=== PATIENT | female | born 1995 | race Hispanic/Latino ===

== ENCOUNTER 2022-01-08 14:58 | Day surgery (SDC) | payer OTHER ==
[2022-01-08 15:33] VITALS: BMI 27.3
[2022-01-08] MEDS ORDERED: hydrALAZINE 20 MG/ML VIAL SLOW IVP PRN (15:42)
== END 2022-01-08 17:30 | disposition home health service (06) ==
LOC: CSHLD/OP 14:58
PROVIDERS: ATTEND Family Medicine
DX: O26.853 Spotting complicating pregnancy, third trimester (principal); O23.593 Infection of other part of genital tract in pregnancy, third trimester; B96.89 Other specified bacterial agents as the cause of diseases classified elsewhere; Z3A.28 28 weeks gestation of pregnancy; Z88.0 Allergy status to penicillin
CPT/HCPCS: 87480; 87510; 87660; 99284

== ENCOUNTER 2022-03-23 22:35 | Day surgery (SDC) | payer BC, OTHER ==
[2022-03-23 23:20] VITALS: BMI 27.9
[2022-03-24] MEDS ORDERED: hydrALAZINE 20 MG/ML VIAL SLOW IVP PRN (01:20)
== END 2022-03-24 01:55 | disposition home or self-care (01) ==
LOC: CSHLD/OP 22:35
PROVIDERS: ATTEND Family Medicine
DX: O26.853 Spotting complicating pregnancy, third trimester (principal); Z3A.38 38 weeks gestation of pregnancy
CPT/HCPCS: 99283

== ENCOUNTER 2022-03-31 06:43 | Inpatient (IN) | payer BC, OTHER ==
[2022-03-31 07:17] VITALS: BMI 27.9
[2022-03-31] MEDS ORDERED: Acetaminophen 500 MG TAB PO PRN (07:37)
[2022-03-31] MEDS ORDERED: Lidocaine 1% (PF) 30 ML VIAL SC PRN (07:37)
[2022-03-31] MEDS ORDERED: hydrALAZINE 20 MG/ML VIAL SLOW IVP PRN ×3 (07:37→23:08)
[2022-03-31] MEDS ORDERED: Promethazine HCl 25 MG/ML VIAL IM PRN ×4 (07:37→18:14)
[2022-03-31] MEDS ORDERED: HYDROcodone/Acetaminophen 5/325 mg Tablet PO PRN (07:37)
[2022-03-31] MEDS ORDERED: Diphenoxylate HCl/Atropine Tablet PO PRN (07:37)
[2022-03-31] MEDS ORDERED: Ibuprofen 800 MG TAB PO PRN (07:37)
[2022-03-31] MEDS ORDERED: Carboprost 250 MCG/ML AMP IM PRN (07:37)
[2022-03-31] MEDS ORDERED: Butorphanol Tartrate 1 MG/ML VIAL SLOW IVP PRN (07:37)
[2022-03-31] MEDS ORDERED: Misoprostol 200 MCG TAB PR PRN (07:37)
[2022-03-31] MEDS ORDERED: Methylergonovine 0.2 MG/ML VIAL IM PRN (07:37)
[2022-03-31] MEDS ORDERED: Ondansetron PF 4 MG/2 ML Vial IVP PRN ×4 (07:37→18:14)
[2022-03-31] MEDS ORDERED: NS w/ Oxytocin 30 units 500 ML IV SCH ×3 (07:45→18:14)
[2022-03-31] MEDS ORDERED: Bupivacaine PF 0.5% 30 ML VIAL ONE (08:00)
[2022-03-31] MEDS ORDERED: Lidocaine 2% MPF 10 ML AMP (For Epidural Use) ONE (08:00)
[2022-03-31] MEDS: Lactated Ringer's 1,000 ML IV SCH ×2 (08:01→14:43)
[2022-03-31 09:23] LABS: Mean Corpuscular HGB CONC 34.6 g/dL (32.0-36.0); Mean Corpuscular Hemoglobin 29.1 pg (27.0-33.0); Mean Corpuscular Volume 84.1 fl (81.6-98.3); Mean Platelet Volume 11.9 fl (7.4-10.4); Platelet Count 120 10x3/uL (150-450); RBC Distribution Width 15.2 % (11.5-14.5); Red Blood Cell (RBC) Count 4.47 10x6/uL (3.90-5.03); White Blood Cell (WBC) Count 5.8 10x3/uL (3.5-10.5)
[2022-03-31 09:51] LABS: Hep B Surf Ag Non-Reactive S/CO (NonReactive); Syphilis Antibody Nonreactive (Nonreactive); Syphilis Antibody Index 0.04 S/CO (<1.00 Non-Reactive)
[2022-03-31 10:17] LABS: HBSAg Index 0.15 S/CO (0-0.99)
[2022-03-31] MEDS ORDERED: Fentanyl 2 mcg/Bup 0.1% Cadd 100 ML ONE (14:43)
[2022-03-31] MEDS ORDERED: Naloxone HCl 0.4 mg/ml Vial IVP PRN ×4 (15:35→17:24)
[2022-03-31] MEDS ORDERED: Lactated Ringer's 500 ML IV PRN (15:35)
[2022-03-31] MEDS ORDERED: ePHEDrine Sulfate 50 MG/10 ML VIAL SLOW IVP PRN (15:35)
[2022-03-31] MEDS ORDERED: diphenhydrAMINE 50 MG/ML VIAL IVP PRN ×2 (15:35→17:24)
[2022-03-31] MEDS ORDERED: Acetaminophen 325 MG TAB PO PRN (15:35)
[2022-03-31] MEDS ORDERED: Moisturizing Cream (Eucerin) 113 GM JAR TOP PRN ×2 (15:35→17:24)
[2022-03-31] MEDS ORDERED: Fentanyl 2 mcg/Bupivacaine 0.1% Cassette 100 ML EPIDURAL SCH (15:45)
[2022-03-31] MEDS ORDERED: Communication Order-Pharmacy FS SCH ×2 (15:45→17:30)
[2022-03-31] MEDS ORDERED: CEFAZOLIN 2 GM VIAL ONE (16:32)
[2022-03-31] MEDS ORDERED: Azithromycin 500 MG VIAL ONE (16:32)
[2022-03-31] MEDS ORDERED: Famotidine/PF 20 mg/2ml Vial ONE (16:33)
[2022-03-31] MEDS ORDERED: Clindamycin/D5W 900 mg/50 ml Premix Bag ONE (16:42)
[2022-03-31] MEDS ORDERED: Morphine PF 10 MG/10 ML VIAL ONE (16:43)
[2022-03-31] MEDS ORDERED: Ondansetron PF 4 MG/2 ML Vial ONE (16:44)
[2022-03-31] MEDS ORDERED: Oxytocin 10 UNITS/ML VIAL ONE (16:44)
[2022-03-31] MEDS ORDERED: PHENYLEPHRINE-NS 100 MCG/ML 10 ML SYRINGE ONE (16:44)
[2022-03-31] MEDS ORDERED: Dexamethasone 4 mg/ml Vial ONE (16:44)
[2022-03-31] MEDS ORDERED: Gentamicin Sulfate 80 MG in Premix Bag 1 BAG IVPB SCH (16:45)
[2022-03-31] MEDS ORDERED: Methylergonovine 0.2 MG/ML VIAL ONE (17:01)
[2022-03-31] MEDS ORDERED: Meperidine HCl/PF 25 MG/ML VIAL SLOW IVP PRN (17:24)
[2022-03-31] MEDS ORDERED: Naloxone HCl 0.4 mg/ml Vial IV PRN (17:24)
[2022-03-31] MEDS ORDERED: Ketorolac Tromethamine 30 MG/ML VIAL IVP PRN (17:24)
[2022-03-31] MEDS ORDERED: Ondansetron HCl/PF 4 MG/2 ML Vial IVP PRN (17:24)
[2022-03-31] MEDS ORDERED: Promethazine HCl 25 MG SUPP PR PRN (17:24)
[2022-03-31] MEDS ORDERED: Fentanyl 100 MCG/2 ML VIAL SLOW IVP PRN (17:24)
[2022-03-31] MEDS ORDERED: L&D-Morphine 4 MG/ML VIAL SLOW IVP PRN (17:24)
[2022-03-31] MEDS ORDERED: Ketorolac Tromethamine 30 MG/ML VIAL IVP SCH (17:30)
[2022-03-31] MEDS ORDERED: Simethicone Chewable 80 MG TAB PO PRN (18:14)
[2022-03-31] MEDS ORDERED: diphenhydrAMINE 25 MG CAP PO PRN (18:14)
[2022-03-31] MEDS ORDERED: Bisacodyl 10 MG SUPP PR PRN (18:14)
[2022-03-31] MEDS ORDERED: Lanolin Ointment 7 GM TUBE TOP PRN (18:14)
[2022-03-31] MEDS ORDERED: Boostrix 0.5 ML (Tdap) VIAL IM ONE (18:14)
[2022-03-31] MEDS ORDERED: Lorazepam 2 MG/ML VIAL SLOW IVP PRN (20:12)
[2022-03-31] MEDS ORDERED: Calcium Gluc 4.6 MEQ/10 ML (100 MG/ML) SLOW IVP PRN (20:12)
[2022-03-31] MEDS ORDERED: Magnesium Sulfate 20 gm/500 ml 20 GM/500 ML BAG ONE (20:16)
[2022-03-31] MEDS ORDERED: hydrALAZINE 20 MG/ML VIAL ONE (20:16)
[2022-03-31] MEDS ORDERED: Ketorolac Tromethamine 30 MG/ML VIAL ONE (21:35)
[2022-03-31] MEDS: Ketorolac Tromethamine 30 MG/ML VIAL IVP SCH (21:35)
[2022-03-31] MEDS ORDERED: cloNIDine 0.1 MG TAB PO PRN (23:09)
[2022-04-01] MEDS: Magnesium Sulfate 20 gm/500 ml 20 GM/500 ML BAG IVPB SCH ×2 (04:41→14:30)
[2022-04-01 04:57] LABS: Hemoglobin 12.5 g/dL (12.0-15.5); Mean Corpuscular HGB CONC 34.5 g/dL (32.0-36.0); Mean Corpuscular Hemoglobin 28.9 pg (27.0-33.0); Mean Corpuscular Volume 83.8 fl (81.6-98.3); Mean Platelet Volume 11.9 fl (7.4-10.4); Platelet Count 117 10x3/uL (150-450); RBC Distribution Width 15.3 % (11.5-14.5); Red Blood Cell (RBC) Count 4.32 10x6/uL (3.90-5.03); White Blood Cell (WBC) Count 10.6 10x3/uL (3.5-10.5)
[2022-04-01] MEDS ORDERED: HYDROcodone/Acetaminophen 5/325 mg Tablet PO PRN ×2 (06:00)
[2022-04-01] MEDS: Ketorolac Tromethamine 30 MG/ML VIAL IVP SCH ×2 (09:11→19:04)
[2022-04-01] MEDS: Docusate 100 MG CAP PO SCH ×3 (09:12→21:10)
[2022-04-01] MEDS: Prenatal Vitamin 1 TAB PO SCH (09:12)
[2022-04-01] MEDS: Ferrous Sulfate 325 MG TAB PO SCH ×3 (09:13→21:00)
[2022-04-01] MEDS: NIFEdipine XL 30 MG TAB PO SCH (09:14)
[2022-04-01] MEDS: Ibuprofen 800 MG TAB PO SCH (21:10)
[2022-04-02] MEDS: Ibuprofen 800 MG TAB PO SCH ×3 (05:10→21:45)
[2022-04-02] MEDS: Ketorolac Tromethamine 30 MG/ML VIAL IVP SCH (07:51)
[2022-04-02] MEDS: Prenatal Vitamin 1 TAB PO SCH (08:13)
[2022-04-02] MEDS: Docusate 100 MG CAP PO SCH ×2 (08:13→21:45)
[2022-04-02] MEDS: NIFEdipine XL 30 MG TAB PO SCH (08:13)
[2022-04-02] MEDS: Ferrous Sulfate 325 MG TAB PO SCH ×2 (08:13→21:45)
[2022-04-03] MEDS: Ibuprofen 800 MG TAB PO SCH (05:10)
[2022-04-03] MEDS: Docusate 100 MG CAP PO SCH (08:35)
[2022-04-03] MEDS: NIFEdipine XL 30 MG TAB PO SCH (08:35)
[2022-04-03] MEDS: Prenatal Vitamin 1 TAB PO SCH (08:35)
[2022-04-03 08:50] VITALS: TEMP 98.9
[2022-04-03 12:04] VITALS: BP 134/83
== END 2022-04-03 12:10 | disposition home or self-care (01) | DRG 788 ==
LOC: CSHLD/OP 06:43 → CSHLD 09:12 → CSHANTE 04-01 19:00
PROVIDERS: ADMIT Family Medicine; ATTEND Family Medicine
PROC: 10D00Z1 Extraction of Products of Conception, Low, Open Approach (ICD-10-PCS; principal; 2022-03-31)
PROC: 10907ZC Drainage of Amniotic Fluid, Therapeutic from Products of Conception, Via Natural or Artificial Opening (ICD-10-PCS; 2022-03-31)
PROC: 10H07YZ Insertion of Other Device into Products of Conception, Via Natural or Artificial Opening (ICD-10-PCS; 2022-03-31)
DX: O76 Abnormality in fetal heart rate and rhythm complicating labor and delivery (principal); Z88.0 Allergy status to penicillin; Z37.0 Single live birth; Z3A.39 39 weeks gestation of pregnancy; O62.2 Other uterine inertia; O32.4XX0 Maternal care for high head at term, not applicable or unspecified; O14.15 Severe pre-eclampsia, complicating the puerperium
CPT/HCPCS: 36415; 51702; 85027; 86780; 86850; 86900; 86901; 87340; 99285; J0360; J0595; J1100; J1885; J2210; J2274; J2405; J2550; J2590; J3475; J7120; S0020; S0028

== ENCOUNTER 2023-03-19 09:46 | Outpatient (CLI) | payer BC, OTHER | END 2023-03-19 09:47 | disposition home or self-care (01) | LOC: CSHULT 09:46 | PROVIDERS: ATTEND Nurse Practitioner Women's Health | DX: Z34.82 Encounter for supervision of other normal pregnancy, second trimester (principal); Z3A.20 20 weeks gestation of pregnancy | CPT/HCPCS: 76805 ==

== ENCOUNTER 2023-07-23 11:02 | Inpatient (IN) | payer BC, OTHER ==
[2023-07-23 11:28] VITALS: BMI 29.8
[2023-07-23] MEDS ORDERED: Ondansetron PF 4 MG/2 ML Vial IVP PRN ×4 (12:21→16:11)
[2023-07-23] MEDS ORDERED: Diphenoxylate HCl/Atropine Tablet PO PRN (12:21)
[2023-07-23] MEDS ORDERED: Methylergonovine 0.2 MG/ML VIAL IM PRN (12:21)
[2023-07-23] MEDS ORDERED: Misoprostol 200 MCG TAB PR PRN (12:21)
[2023-07-23] MEDS ORDERED: fentaNYL 50 mcg/mL 1 mL Vial SLOW IVP PRN ×2 (12:21→13:47)
[2023-07-23] MEDS ORDERED: Carboprost 250 MCG/ML AMP IM PRN (12:21)
[2023-07-23] MEDS ORDERED: Tranexamic Acid 1,000 MG/10 ML VIAL IVP PRN (12:21)
[2023-07-23] MEDS ORDERED: Promethazine HCl 25 MG/ML VIAL IM PRN ×3 (12:21→16:11)
[2023-07-23] MEDS ORDERED: Acetaminophen 500 MG TAB PO PRN (12:21)
[2023-07-23] MEDS ORDERED: Bicitra 30 ML UDCUP PO PRN (12:21)
[2023-07-23] MEDS ORDERED: hydrALAZINE 20 MG/ML VIAL SLOW IVP PRN ×2 (12:21→16:11)
[2023-07-23] MEDS ORDERED: Famotidine/PF 20 mg/2ml Vial SLOW IVP PRN (12:21)
[2023-07-23] MEDS ORDERED: Oxytocin 30 units/NS 500 ML 500 ML IV SCH (12:30)
[2023-07-23] MEDS ORDERED: Azithromycin 500 MG in Sodium Chloride 0.9% 250 ML 250 ML IVPB SCH (12:30)
[2023-07-23] MEDS ORDERED: Lactated Ringer's 1,000 ML IV SCH (12:30)
[2023-07-23] MEDS ORDERED: CEFAZOLIN 2 GM in Sodium Chloride 0.9% 100 ML IVPB SCH (12:30)
[2023-07-23 12:33] LABS: Hematocrit 39.4 % (34.9-44.5); Hemoglobin 13.1 g/dL (12.0-15.5); Mean Corpuscular HGB CONC 33.2 g/dL (32.0-36.0); Mean Corpuscular Hemoglobin 26.1 pg (27.0-33.0); Mean Corpuscular Volume 78.5 fl (81.6-98.3); Mean Platelet Volume 11.9 fl (7.4-10.4); Platelet Count 202 10x3/uL (150-450); Red Blood Cell (RBC) Count 5.02 10x6/uL (3.90-5.03); White Blood Cell (WBC) Count 9.1 10x3/uL (3.5-10.5)
[2023-07-23] MEDS ORDERED: ePHEDrine Sulfate 50 MG/10 ML VIAL ONE (12:45)
[2023-07-23] MEDS ORDERED: Morphine PF 10 MG/10 ML VIAL ONE (12:45)
[2023-07-23] MEDS ORDERED: Oxytocin 10 UNITS/ML VIAL ONE (12:45)
[2023-07-23] MEDS ORDERED: PHENYLEPHRINE-NS 100 MCG/ML 10 ML SYRINGE ONE (12:45)
[2023-07-23] MEDS ORDERED: fentaNYL 50 mcg/mL 1 mL Vial ONE (12:45)
[2023-07-23] MEDS ORDERED: Ondansetron PF 4 MG/2 ML Vial ONE (12:49)
[2023-07-23] MEDS ORDERED: Triamcinolone 40 MG/ML VIAL IM SCH (13:00)
[2023-07-23 13:08] LABS: Syphilis Antibody Nonreactive (Nonreactive); Syphilis Antibody Index 0.05 S/CO (<1.00 Non-Reactive)
[2023-07-23 13:10] LABS: HBSAg Index 0.18 S/CO (0-0.99); Hep B Surf Ag - L&D Non-Reactive S/CO (NonReactive)
[2023-07-23] MEDS ORDERED: Promethazine HCl 25 MG/ML VIAL ONE (13:21)
[2023-07-23] MEDS ORDERED: Phytonadione Neonatal 1 MG/0.5 ML AMP ONE (13:23)
[2023-07-23] MEDS ORDERED: Erythromycin Base 0.5% Oint 1 GM TUBE ONE (13:23)
[2023-07-23] MEDS ORDERED: Ketorolac Tromethamine 30 MG/ML VIAL ONE (13:24)
[2023-07-23] MEDS ORDERED: Meperidine HCl/PF 25 MG/ML VIAL SLOW IVP PRN (13:47)
[2023-07-23] MEDS ORDERED: Naloxone HCl 0.4 mg/ml Vial IVP PRN ×2 (13:47)
[2023-07-23] MEDS ORDERED: HYDROmorphone 0.5 MG/0.5 ML SYRINGE SLOW IVP PRN (13:47)
[2023-07-23] MEDS ORDERED: Moisturizing Cream (Eucerin) 113 GM JAR TOP PRN (13:47)
[2023-07-23] MEDS ORDERED: Promethazine HCl 25 MG SUPP PR PRN (13:47)
[2023-07-23] MEDS ORDERED: diphenhydrAMINE 50 MG/ML VIAL IVP PRN (13:47)
[2023-07-23] MEDS ORDERED: Naloxone HCl 0.4 mg/ml Vial IV PRN (13:47)
[2023-07-23] MEDS ORDERED: Ketorolac Tromethamine 30 MG/ML VIAL IVP PRN (13:47)
[2023-07-23] MEDS ORDERED: Communication Order-Pharmacy FS SCH (14:00)
[2023-07-23] MEDS ORDERED: Ketorolac Tromethamine 30 MG/ML VIAL IVP SCH (14:00)
[2023-07-23] MEDS ORDERED: Hepatitis B Vaccine 10 MCG/0.5 ML SYR ONE (14:13)
[2023-07-23] MEDS ORDERED: HYDROcodone/Acetaminophen 5/325 mg Tablet PO PRN (16:11)
[2023-07-23] MEDS ORDERED: Lanolin Ointment 7 GM TUBE TOP PRN (16:11)
[2023-07-23] MEDS ORDERED: diphenhydrAMINE 25 MG CAP PO PRN (16:11)
[2023-07-23] MEDS ORDERED: Meperidine HCl/PF 25 MG/ML VIAL IM PRN (16:11)
[2023-07-23] MEDS ORDERED: Boostrix 0.5 ML (Tdap) VIAL (>/=7 yrs of age) IM ONE (16:11)
[2023-07-23] MEDS ORDERED: Bisacodyl 10 MG SUPP PR PRN (16:11)
[2023-07-23] MEDS: Ketorolac Tromethamine 30 MG/ML VIAL IVP SCH (19:31)
[2023-07-24] MEDS: Docusate 100 MG CAP PO SCH ×3 (00:06→21:39)
[2023-07-24] MEDS: Ferrous Sulfate 325 MG TAB PO SCH ×3 (00:06→21:39)
[2023-07-24] MEDS: Ketorolac Tromethamine 30 MG/ML VIAL IVP SCH ×2 (01:28→08:39)
[2023-07-24] MEDS: Simethicone Chewable 80 MG TAB PO PRN ×3 (01:38→21:39)
[2023-07-24 04:32] LABS: Hematocrit 24.5 % (34.9-44.5); Hemoglobin 8.1 g/dL (12.0-15.5); Mean Corpuscular HGB CONC 33.1 g/dL (32.0-36.0); Mean Corpuscular Hemoglobin 26.4 pg (27.0-33.0); Mean Corpuscular Volume 79.8 fl (81.6-98.3); Mean Platelet Volume 12.2 fl (7.4-10.4); Platelet Count 127 10x3/uL (150-450); RBC Distribution Width 13.1 % (11.5-14.5); Red Blood Cell (RBC) Count 3.07 10x6/uL (3.90-5.03); White Blood Cell (WBC) Count 9.6 10x3/uL (3.5-10.5)
[2023-07-24] MEDS: Prenatal Vitamin 1 TAB PO SCH (08:40)
[2023-07-24] MEDS: Ibuprofen 800 MG TAB PO SCH ×2 (13:39→21:40)
[2023-07-24] MEDS: HYDROcodone/Acetaminophen 5/325 mg Tablet PO PRN ×2 (16:15→21:40)
[2023-07-25] MEDS: Ibuprofen 800 MG TAB PO SCH ×2 (05:36→13:36)
[2023-07-25] MEDS: Prenatal Vitamin 1 TAB PO SCH (08:47)
[2023-07-25] MEDS: Docusate 100 MG CAP PO SCH (08:47)
[2023-07-25] MEDS: Ferrous Sulfate 325 MG TAB PO SCH (08:47)
[2023-07-25] MEDS: HYDROcodone/Acetaminophen 5/325 mg Tablet PO PRN ×2 (08:48→14:49)
[2023-07-25 11:44] VITALS: BP 110/69; TEMP 98.6
== END 2023-07-25 17:45 | disposition home or self-care (01) | DRG 788 ==
LOC: CSHLD/OP 11:02 → CSHLD 14:06 → CSHPP 16:17 → UNDODISIN 07-24 21:28
PROVIDERS: ADMIT Family Medicine; ATTEND Family Medicine
PROC: 10D00Z1 Extraction of Products of Conception, Low, Open Approach (ICD-10-PCS; principal; 2023-07-23)
PROC: 3E0P05Z Introduction of Adhesion Barrier into Female Reproductive, Open Approach (ICD-10-PCS; 2023-07-23)
DX: O42.02 Full-term premature rupture of membranes, onset of labor within 24 hours of rupture (principal); O34.211 Maternal care for low transverse scar from previous cesarean delivery; Z3A.39 39 weeks gestation of pregnancy; Z37.0 Single live birth; O99.824 Streptococcus B carrier state complicating childbirth
CPT/HCPCS: 36415; 51702; 85027; 86780; 86850; 86900; 86901; 87340; 99285; J0456; J1200; J1885; J2175; J2274; J2405; J2550; J2590; J3010; J3301; J3430; J3490; J7050; S0028